=== PATIENT | female | born 1980 | race Two or more races ===

== ENCOUNTER 2020-09-19 05:39 | Day surgery (SDC) | payer OTHER ==
[2020-09-19] MEDS ORDERED: PERCOCET 5-3251 EACH PO (09:48)
== END 2020-09-19 12:15 | disposition home or self-care (01) ==
LOC: CIR.AMB 05:39
PROVIDERS: ATTEND Surgery
DX: D35.1 Benign neoplasm of parathyroid gland (principal); Z20.822 Contact with and (suspected) exposure to COVID-19